=== PATIENT | female | born 1995 | race African-American/Black ===

== ENCOUNTER 2016-12-23 08:23 | Emergency (ER) | payer MEDICAID, OTHER ==
[~2016-12-23] VITALS: Ht 149.9 cm; Wt 43.0 kg
[~2016-12-23 08:23] MED LIST: METR-1 PO
[2016-12-23 08:24] VITALS: BP 164/111; PULSE 102; RESP 20; TEMP 98.1; O2SAT 100
[2016-12-23] MEDS ORDERED: predniSONE 20 MG TAB PO ONE (08:45)
[2016-12-23] MEDS ORDERED: RESP: ALBUTEROL 2.5 MG/3 ML NEB (SCH) INH ONE (08:45)
--- NOTE | 2016-12-23 08:52 | PD ---
HPI Chief Complaint: Cold / Flu Symptoms Time Seen by Provider: 08:46 Travel History International Travel<30 days: No Contact w/Intl Traveler<30days: No Traveled to known affect area: No History of Present Illness HPI 21-year-old female presents to the emergency department with complaint of cough , nasal congestion 4 days. Denies ear pain or throat pain. Reports chest tightness and feeling like she has to take a deep breath at times. Denies history of asthma. Denies wheezing. Symptoms are worse during cough exacerbations. Her main complaint is cough. Reports dry, nonproductive cough. Reports body aches. Denies headache, fever, chills, nausea, vomiting. Has been taking slin-hcm-bpyiune cough and cold medication with minimal relief. Has also been using Afrin for nasal congestion with good relief. Has history of epilepsy and has not taken medications for 5 years. Last menstrual period one week ago. No oral contraceptive use. Allergies to amoxicillin. Does not have an established primary care doctor. No other modifying factors or associated signs and symptoms. PFSH Past Medical History Seizures: Yes (off seizure medication 3 years without recurrent seizure) Tetanus Vaccination: < 5 Years ?: Not LMP: 12/16/16 Social History Alcohol Use: No Tobacco Use: No Substance Use: Yes (occassional marijuana) Allergies-Medications (Allergen,Severity, Reaction): Coded Allergies: Amoxicillin (Verified Allergy, Severe, 12/23/16) Reported Meds & Prescriptions Reported Meds & Active Scripts Active Tessalon Perles (Benzonatate) 100 Mg Cap 100 Mg PO TID PRN Ibuprofen 800 Mg Tab 800 Mg PO Q6HR PRN Deltasone (Prednisone) 20 Mg Tab 40 Mg PO DAILY 4 Days start 12/24/2016 Proair Hfa 8.5 GM Inh (Albuterol Sulfate) 90 Mcg/Act Aer 2 Puff INH Q4-6H PRN 108 mcg/actuation Review of Systems Except as stated in HPI: all other systems reviewed are Neg Physical Exam Narrative GENERAL: Well-nourished, well-developed female patient, in no acute distress; afebrile, nontoxic-appearing SKIN: Warm and dry. HEAD: Atraumatic. Normocephalic. EYES: Pupils equal and round. No scleral icterus. No injection or drainage. ENT: Mucosa pink and moist. No erythema or exudates. No uvular edema. No uvular , palatal, or tonsillar deviation. Airway patent. Nares without nasal blood, purulent drainage or septal hematoma. EARS: Bilateral pinnae and external canals appear within normal limits. Bilateral tympanic membranes without erythema, dullness or perforation. NECK: Trachea midline. No lymphadenopathy. CARDIOVASCULAR: Regular rate and rhythm. No murmur appreciated. 3+ radial pulses. RESPIRATORY: No accessory muscle use. Lungs clear and equal throughout with decreased lung sounds in bilateral bases. Breath sounds equal bilaterally. No retractions or tachypnea. No Audible wheezing noted. Dry cough. GASTROINTESTINAL: Abdomen soft, non-tender, nondistended. Hepatic and splenic margins not palpable. Bowel sounds are active 4 quadrants. MUSCULOSKELETAL: No obvious deformities. No clubbing. No cyanosis. No edema. NEUROLOGICAL: Awake and alert. Oriented 3. No obvious cranial nerve deficits. Motor grossly within normal limits. Normal speech. Moves all extremities. 5/5 strength to all extremities. PSYCHIATRIC: Appropriate mood and affect; insight and judgment normal. Data Data Last Documented VS Vital Signs Date Time Temp Pulse Resp B/P Pulse Ox O2 Delivery O2 Flow Rate FiO2 12/23/16 09:12 100 21 12/23/16 08:24 98.1 102 20 164/111 Room Air Orders Influenzae A/B Antigen (12/23/16 08:44) Chest, Single Ap (12/23/16 08:44) Prednisone (Deltasone) (12/23/16 08:45) Albuterol Neb (Albuterol Neb) (12/23/16 08:45) MDM Medical Decision Making Medical Screen Exam Complete: Yes Emergency Medical Condition: Yes Medical Record Reviewed: Yes Differential Diagnosis Influenza, bronchitis, pneumonia, viral illness, upper respiratory infection Narrative Course 21-year-old female with cold/flu symptoms 4 days. Suspecting bronchitis. Afebrile and nontoxic appearing in the ER. Patient is in no acute distress without retractions or tachypnea. Lungs are clear and equal throughout with decreased lung sounds in bilateral bases. No wheezing. Persistent dry cough during physical exam. Influenza, chest x-ray, albuterol nebulizer, Deltasone ordered. 0927: Influenza B positive. Chest x-ray negative. On reevaluation the patient reports improvement in chest tightness and shortness of breath. Says she feels much better. Lungs are clear and equal throughout with improved breath sounds in bilateral bases. Patient has had decreased cough exacerbations after breathing treatment. Discussed influenza and viral illness and symptom management. Patient verbalizes understanding and agreement. Work release provided. Pro-air inhaler, Deltasone, Tessalon Perles, ibuprofen prescribed for home. Patient verbalizes understanding and agreement with treatment plan. Patient is medically cleared and stable for discharge. Discussed reasons to return to the emergency department. Instructed patient to follow up with primary care provider. Patient agrees with treatment plan. The patients vital signs are stable and the patient is stable for outpatient follow- up and treatment. Patient discharged home, stable and in no acute distress. Diagnosis Primary Impression: Influenza B Additional Impression: Influenzal bronchitis Referrals: Primary Care Physician Patient Instructions: Acute Bronchitis (ED), General Instructions, Influenza ( ED) Departure Forms: Tests/Procedures, Work Release Enter return to work date: Dec 28, 2016 Additional Instructions: Use Albuterol inhaler as prescribed Take oral steroids as prescribed and complete full course Use Tessalon Perles as prescribed to decrease coughing spasms Bbpo-lfl-gbnlyux decongestants or antihistamines as directed and as needed for symptom management Your cough can last 4-6 weeks Drink plenty of fluids to prevent dehydration Use hot air humidifier to decrease cough exacerbation Turn off ceiling fans and sleep with head of bed elevated Avoid triggers such as second hand smoke, dust, known allergens Follow-up with your primary care provider Return to the emergency department immediately with worsening of symptoms Med/Other Pt SpecificInfo: Prescription(s) given Scripts Benzonatate (Tessalon Perles)100 Mg [id number] Mg PO TID PRN (COUGH) #20 CAP Ref 0 Prov:Lissett GodoyP 12/23/16 Ibuprofen 800 Mg [id number] Mg PO Q6HR PRN (PAIN) #30 TAB Ref 0 Prov:Lissett GodoyP 12/23/16 Prednisone (Deltasone)20 Mg Tab40 Mg PO DAILY 4 Days Ref 0 start 12/24/2016 Prov:Lissett GodoyP 12/23/16 Albuterol 8.5 GM Inh (Proair Hfa 8.5 GM Inh)90 Mcg/Act Aer2 Puff INH Q4-6H PRN ( SOB/WHEEZING) #1 INHALER Ref 0 108 mcg/actuation Prov:Lissett Godoy 12/23/16 Disposition: 01 DISCHARGE HOME Condition: Stable Lissett Godoy Dec 23, 2016 08:52
[2016-12-23 09:12] VITALS: O2SAT 100
--- NOTE | 2016-12-23 09:23 | RADRPT ---
EXAM DATE/TIME: 12/23/2016 08:55 [facility] COMPARISON: No previous studies available for comparison. INDICATIONS : Cough, congestion, and chest pain. MEDICAL HISTORY : None. SURGICAL HISTORY : None. ENCOUNTER: Initial ACUITY: 4 - 6 days PAIN SCORE: 4/10 LOCATION: Bilateral chest. FINDINGS: A single view of the chest demonstrates the lungs to be symmetrically aerated without evidence of mas s, infiltrate or effusion. The cardiomediastinal contours are unremarkable. Osseous structures are intact. CONCLUSION: No acute disease. Ant Aranda MD FACR on December 23, 2016 at 9:21 Board Certified Radiologist. This report was verified electronically.
[2016-12-23] MEDS ORDERED: ALBUAER3 INH (09:30)
[2016-12-23] MEDS ORDERED: IBUP800T23 PO (09:30)
[2016-12-23] MEDS ORDERED: BENZ100 PO (09:30)
[2016-12-23] MEDS ORDERED: PRED-503 PO (09:30)
[2016-12-23 09:47] VITALS: BP 128/78; PULSE 92; RESP 20
== END 2016-12-23 09:42 | disposition home or self-care (01) ==
LOC: NEPB 08:23
DX: J10.1 Influenza due to other identified influenza virus with other respiratory manifestations (principal); J40 Bronchitis, not specified as acute or chronic; R07.89 Other chest pain
CPT/HCPCS: 71010; 87804; 94664; 99283; J7512; J7613